=== PATIENT | female | born 1940 | race Hispanic/Latino ===

== ENCOUNTER 2018-10-04 09:49 | Emergency (ER) | payer MEDICARE ==
[2018-10-04] MEDS ORDERED: KETOROLAC TROMETHAMINE 15MG/ML ONE (10:10)
[2018-10-04] MEDS ORDERED: ORPHENADRINE CITRATE 30 MG/ML ML ONE (10:10)
[2018-10-04 10:35] LABS: APPEARANCE,URINE Turbid (CLEAR); BILIRUBIN,URINE Negative (NEGATIVE); COLOR,URINE Yellow (YELLOW); GLUCOSE, URINE (UA) Negative (NEGATIVE); KETONES,URINE Negative (NEGATIVE); LEUKOCYTE ESTERASE ,URINE Trace (NEGATIVE); NITRATE,URINE Negative (NEGATIVE); OCCULT BLOOD,URINE Negative (NEGATIVE); PROTEIN,URINE Negative (NEGATIVE)
[2018-10-04 10:45] LABS: BACTERIA,URINE Rare /HPF (None Seen); MUCUS,URINE Few LPF (None Seen); RBC,URINE None Seen /HPF (0-1); SQUAMOUS EPITHELIAL CELL,UR Few /HPF (0-2); WBC,URINE 0-1 /HPF (0-1)
== END 2018-10-04 10:52 | disposition home or self-care (01) ==
LOC: EDH 09:49 → EDBD 09:49 → EDH 10:52
DX: M51.36 Other intervertebral disc degeneration, lumbar region (principal); I10 Essential (primary) hypertension; E78.00 Pure hypercholesterolemia, unspecified; E07.9 Disorder of thyroid, unspecified; Z88.0 Allergy status to penicillin; Z88.2 Allergy status to sulfonamides
CPT/HCPCS: 72131; 81001; 96372 ×2; 99284; J1885; J2360